=== PATIENT | male | born 1980 | race African-American/Black ===

== ENCOUNTER 2023-12-20 00:49 | Emergency (ER) | payer MEDICAID ==
[~2023-12-20] VITALS: Ht 190.5 cm; Wt 76.0 kg
[2023-12-20 01:16] VITALS: O2SAT 100
[2023-12-20] MEDS ORDERED: IBUP-2029 MT (02:36)
[2023-12-20 03:00] VITALS: BP 126/80; PULSE 82; RESP 14; TEMP 98
== END 2023-12-20 03:02 | disposition home or self-care (01) ==
LOC: ER 00:49
DX: G56.21 Lesion of ulnar nerve, right upper limb (principal)
CPT/HCPCS: 99281; 99282

== ENCOUNTER 2024-08-10 17:02 | Emergency (ER) | payer MEDICAID ==
[~2024-08-10] VITALS: Ht 182.9 cm; Wt 82.0 kg
[~2024-08-10 17:02] MED LIST: IBUP-2029 MT
[2024-08-10 17:13] VITALS: BP 119/77; PULSE 103; RESP 18; TEMP 98.2; O2SAT 97
[2024-08-10] MEDS ORDERED: KETOROLAC 30MG/ML VIAL IM ONE (18:00)
[2024-08-10] MEDS ORDERED: KETOROLAC 30MG/ML VIAL IM NR (19:15)
== END 2024-08-10 19:42 | disposition home or self-care (01) ==
LOC: ER 17:02
DX: S83.92XA Sprain of unspecified site of left knee, initial encounter (principal); Z98.890 Other specified postprocedural states; X58.XXXA Exposure to other specified factors, initial encounter; Y93.89 Activity, other specified; Y92.89 Other specified places as the place of occurrence of the external cause; Y99.8 Other external cause status
CPT/HCPCS: 73562; 99283